=== PATIENT | male | born 1940 | race Two or more races ===

== ENCOUNTER 2016-02-22 10:44 | Inpatient (IN) | payer MEDICARE, MEDICAID ==
[~2016-02-22] VITALS: Ht 167.6 cm; Wt 69.9 kg
[~2016-02-22 10:44] MED LIST: ALLO100T; AMI200T PO; Bumetanide PO; CLOP75TA28 PO; DOXY-216 PO; FAM20T PO; GABA-494; GLIP-115; INSLANTI SC; LEV50T PO; MET25T PO; METO5TAB56 PO; POTA8TAB2 PO; PRAV20TA3 PO; SACC250C PO; SPIR25TA88 PO; TAM04C PO; WARF5TAB PO; [UNRECOGNIZED DRUG - CODE]
[2016-02-22] MEDS ORDERED: ACETAMINOPHEN 325 MG TAB PO ONE (12:00)
[2016-02-22] MEDS ORDERED: LEVOFLOXACIN 500MG 100 ML IV ONE (12:00)
[2016-02-22 12:10] LABS: Basophils # (auto) 0 uL; Basophils % (auto) 0.4 % (0.0-2.0); DEFINITIVE VIEW TRANSMISSION; Eosinophils # (auto) 0 uL; Eosinophils % (auto) 0.3 % (0.0-7.0); Hematocrit 36.2 % (41.0-53.0); Hemoglobin 11.1 g/dL (13.5-17.5); Lymphocytes # (auto) 0.5 uL; Lymphocytes % (auto) 7.2 % (10.0-50.0); Mean Corpuscular Hgb Conc. 30.6 g/dL (32.0-36.0); Mean Corpuscular Volume 81.5 fL (80.0-100.0); Mean Platelet Volume 9.8 fL (7.4-10.4); Monocytes # (auto) 0.4 uL; Monocytes % (auto) 5.7 % (0.0-12.0); Neutrophils # (auto) 5.5 uL; Neutrophils % (auto) 86.4 % (37.0-80.0); Platelet Count (auto) 133 10^3/uL (140-450); SUSPECT VIEW TRANSMISSION; White Blood Cell 6.4 10^3/uL (4.4-10.8)
[2016-02-22] MEDS ORDERED: SODIUM CHLORIDE 0.9% 1,000 ML IV ONE (12:15)
[2016-02-22 12:18] LABS: Red Cell Distribution Width 27.2 % (11.6-16.0)
[2016-02-22 12:22] LABS: Lactic Acid 2.2 mmol/L (0.4-2.0)
[2016-02-22 12:29] LABS: Bilirubin, Total 1.1 mg/dL (0.2-1.0); Calcium 9.1 mg/dL (8.5-10.1); Magnesium 3.1 mg/dL (1.6-2.6); Total Protein 8.4 g/dL (6.4-8.2)
[2016-02-22 12:39] LABS: REFLEX LACTIC ACID YES OR NO YES
[2016-02-22 12:47] LABS: BUN/Creatinine Ratio 36.4
[2016-02-22 12:57] LABS: Partial Thromboplastin Time 33.2 sec (22.64-33.71)
[2016-02-22 12:59] LABS: Anisocytosis Slight; Platelet Estimate Decreased
[2016-02-22 13:00] LABS: Hypochromia Slight
[2016-02-22 13:11] LABS: INR 2.08 (0.9-1.15); Prothrombin Time 21.4 sec (9.37-12.3)
[2016-02-22] MEDS ORDERED: AZITHROMYCIN 500MG/D5W 250ML 250 ML IV ONE (15:45)
[2016-02-22] MEDS ORDERED: cefTRIAXone 1GM/50ML D5W 50 ML IV ONE (15:45)
[2016-02-22] MEDS ORDERED: POTASSIUM CHLORIDE 8 MEQ TAB PO ONE (16:00)
[2016-02-22] MEDS ORDERED: DOCUSATE SOD 100 MG CAP PO PRN (16:00)
[2016-02-22] MEDS ORDERED: ONDANSETRON HCL 4 MG/2 ML VIAL IV PRN (16:00)
[2016-02-22] MEDS ORDERED: ACETAMINOPHEN 325 MG TAB PO PRN (16:00)
[2016-02-22] MEDS ORDERED: TEMAZEPAM 15 MG CAP PO PRN (16:00)
[2016-02-22] MEDS ORDERED: NITROGLYCERIN 0.4 MG SL TAB SL PRN (16:00)
[2016-02-22] MEDS ORDERED: DEXTROSE (50%) 50ML SYRG IV PRN (16:00)
[2016-02-22] MEDS ORDERED: MORPHINE SULF INJ 2 MG/ML SYRINGE 1ML IV PRN ×2 (16:00)
[2016-02-22] MEDS: SODIUM CHLORIDE 0.9% 1,000 ML IV SCH (16:17)
[2016-02-22] MEDS ORDERED: ENOXAPARIN SOD 30 MG/0.3 ML SYRINGE SC SCH (16:30)
[2016-02-22] MEDS: FAMOTIDINE 20 MG TAB PO SCH (16:40)
[2016-02-22] MEDS: MULTIPLE VITAMIN TAB PO SCH (16:40)
[2016-02-22] MEDS: ACCU-CHEK COMFORT CURVE STRIP VI SCH ×2 (17:00→22:00)
[2016-02-22] MEDS: InsuLIN REG 1unit/0.01ml Soln (100units/ml) SC SCH (17:00)
[2016-02-22 17:02] LABS: Urine Bilirubin Negative (Negative); Urine Glucose Normal (Normal); Urine Hyaline Cast MANY /lpf (0 - 2); Urine Ketone Negative (Negative); Urine Nitrite Negative (Negative); Urine RBC 1701 /hpf (0 - 3); Urine Squamous Epithelial Cell FEW /hpf (<5); Urine Urobilinogen Normal (Negative)
[2016-02-22 17:05] LABS: Urine Blood 3+ /uL (Negative); Urine Color Brown (Yellow)
[2016-02-22] MEDS ORDERED: TAMSULOSIN HYDROCHLORIDE 0.4 MG CAP PO SCH (18:00)
[2016-02-22] MEDS ORDERED: SPIRONOLACTONE 25 MG TAB PO ONE (18:15)
[2016-02-22] MEDS ORDERED: CLOPIDOGREL BISULFATE 75 MG TAB PO ONE (18:15)
[2016-02-22] MEDS ORDERED: ALLOPURINOL 100 MG TAB PO ONE (18:15)
[2016-02-22] MEDS ORDERED: AMIODARONE HCL 200 MG TAB PO ONE (18:15)
[2016-02-22] MEDS: BUMETANIDE 1 MG TAB PO SCH (18:18)
[2016-02-22 18:38] VITALS: BP 108/49
[2016-02-22] MEDS ORDERED: WARFARIN SODIUM 2.5 MG TAB PO ONE (20:00)
[2016-02-22] MEDS: guaiFENesin-DEXTROMETHORPHAN 5ML SYR PO PRN (20:44)
[2016-02-22] MEDS ORDERED: PRAVASTATIN SODIUM 20 MG TAB PO SCH (22:00)
[2016-02-22] MEDS: METOPROLOL TARTRATE 25 MG TAB PO SCH (22:00)
[2016-02-22] MEDS ORDERED: InsuLIN REG 1unit/0.01ml Soln (100units/ml) SC SCH (22:00)
[2016-02-22] MEDS: HYDROcodone-ACET 5/325MG TAB PO PRN (22:13)
[2016-02-22] MEDS: GABAPENTIN 100 MG CAP PO SCH (22:13)
[2016-02-23 01:00] LABS: Hematocrit 27.3 % (41.0-53.0); Hemoglobin 8.7 g/dL (13.5-17.5)
[2016-02-23] MEDS: HYDROcodone-ACET 5/325MG TAB PO PRN (03:08)
[2016-02-23 05:00] VITALS: BP 118/55
[2016-02-23 05:21] LABS: Basophils # (auto) 0 uL; Basophils % (auto) 0.3 % (0.0-2.0); DEFINITIVE VIEW TRANSMISSION; Eosinophils # (auto) 0 uL; Eosinophils % (auto) 0.2 % (0.0-7.0); Hematocrit 28.1 % (41.0-53.0); Hemoglobin 8.9 g/dL (13.5-17.5); Lymphocytes # (auto) 0.5 uL; Lymphocytes % (auto) 10.5 % (10.0-50.0); Mean Corpuscular Hemoglobin 25.6 pg (28.0-32.0); Mean Corpuscular Hgb Conc. 31.8 g/dL (32.0-36.0); Mean Corpuscular Volume 80.7 fL (80.0-100.0); Mean Platelet Volume 9.8 fL (7.4-10.4); Monocytes # (auto) 0.3 uL; Monocytes % (auto) 6.5 % (0.0-12.0); Neutrophils # (auto) 4.3 uL; Neutrophils % (auto) 82.5 % (37.0-80.0); Platelet Count (auto) 98 10^3/uL (140-450); SUSPECT VIEW TRANSMISSION; White Blood Cell 5.2 10^3/uL (4.4-10.8)
[2016-02-23 05:35] LABS: Albumin 3.2 g/dL (3.4-5.0); Bilirubin, Total 0.8 mg/dL (0.2-1.0); Calcium 8.5 mg/dL (8.5-10.1); Total Protein 6.5 g/dL (6.4-8.2)
[2016-02-23 05:42] LABS: Red Cell Distribution Width 26.5 % (11.6-16.0)
[2016-02-23 05:50] LABS: INR 2.81 (0.9-1.15); Prothrombin Time 28.9 sec (9.37-12.3)
[2016-02-23] MEDS: BUMETANIDE 1 MG TAB PO SCH (06:33)
[2016-02-23 06:51] LABS: BUN/Creatinine Ratio 37.7
[2016-02-23 06:52] LABS: Anisocytosis Moderate; Hypochromia Slight; Platelet Estimate Decreased
[2016-02-23 06:53] LABS: Microcytosis Slight; Ovalocytes FEW
[2016-02-23 06:54] LABS: Tear Drop Cells FEW
[2016-02-23] MEDS ORDERED: LEVOTHYROXINE SODIUM 25 MCG TAB PO SCH (07:00)
[2016-02-23] MEDS ORDERED: POTASSIUM CHL 20 Meq TABLET PO ONE (07:00)
[2016-02-23] MEDS ORDERED: glipiZIDE 5 MG TAB PO SCH (07:00)
[2016-02-23] MEDS: ACCU-CHEK COMFORT CURVE STRIP VI SCH ×2 (07:03→11:30)
[2016-02-23] MEDS: InsuLIN REG 1unit/0.01ml Soln (100units/ml) SC SCH ×2 (07:04→11:30)
[2016-02-23 07:31] LABS: Hematocrit 27.2 % (41.0-53.0); Hemoglobin 8.5 g/dL (13.5-17.5)
[2016-02-23] MEDS ORDERED: INSULIN DETEMIR(LEVEMIR) 1unit/0.01ml Soln (100units/ml) SC SCH (08:00)
[2016-02-23] MEDS: SODIUM CHLORIDE 0.9% 1,000 ML IV SCH (08:28)
[2016-02-23 09:00] VITALS: BP 104/47
[2016-02-23] MEDS ORDERED: cefTRIAXone 1GM/50ML D5W 50 ML IV SCH (09:00)
[2016-02-23 09:55] LABS: Basophils # (auto) 0 uL; Basophils % (auto) 0.4 % (0.0-2.0); DEFINITIVE VIEW TRANSMISSION; Eosinophils # (auto) 0 uL; Eosinophils % (auto) 0.3 % (0.0-7.0); Hematocrit 30.4 % (41.0-53.0); Hemoglobin 9.3 g/dL (13.5-17.5); Lymphocytes # (auto) 0.7 uL; Lymphocytes % (auto) 9.7 % (10.0-50.0); Mean Corpuscular Hgb Conc. 30.7 g/dL (32.0-36.0); Mean Corpuscular Volume 81.5 fL (80.0-100.0); Mean Platelet Volume 9.7 fL (7.4-10.4); Monocytes # (auto) 0.5 uL; Monocytes % (auto) 6.9 % (0.0-12.0); Neutrophils # (auto) 6.2 uL; Neutrophils % (auto) 82.7 % (37.0-80.0); Platelet Count (auto) 110 10^3/uL (140-450); SUSPECT VIEW TRANSMISSION; White Blood Cell 7.4 10^3/uL (4.4-10.8)
[2016-02-23] MEDS ORDERED: POTASSIUM CHL 10 Meq TABLET PO SCH (10:00)
[2016-02-23] MEDS: METOPROLOL TARTRATE 25 MG TAB PO SCH (10:00)
[2016-02-23] MEDS ORDERED: CLOPIDOGREL BISULFATE 75 MG TAB PO SCH (10:00)
[2016-02-23] MEDS ORDERED: AMIODARONE HCL 200 MG TAB PO SCH (10:00)
[2016-02-23] MEDS ORDERED: AZITHROMYCIN 500MG/D5W 250ML 250 ML IV SCH (10:00)
[2016-02-23] MEDS ORDERED: METOLAZONE 5 MG TAB PO SCH (10:00)
[2016-02-23] MEDS ORDERED: SPIRONOLACTONE 25 MG TAB PO SCH (10:00)
[2016-02-23] MEDS ORDERED: ALLOPURINOL 100 MG TAB PO SCH (10:00)
[2016-02-23 10:12] LABS: Red Cell Distribution Width 26.8 % (11.6-16.0)
[2016-02-23 10:46] LABS: Anisocytosis Slight; Macrocytosis Slight; Ovalocytes FEW; Platelet Estimate Decreased; Tear Drop Cells FEW
[2016-02-23] MEDS ORDERED: POTASSIUM CHL 10% (20 MEQ/15ML) ORAL SOLN PO ONE (11:45)
[2016-02-23] MEDS: guaiFENesin-DEXTROMETHORPHAN 5ML SYR PO PRN (11:56)
[2016-02-23] MEDS: FAMOTIDINE 20 MG TAB PO SCH (12:14)
[2016-02-23] MEDS: GABAPENTIN 100 MG CAP PO SCH (12:14)
[2016-02-23] MEDS: MULTIPLE VITAMIN TAB PO SCH (12:14)
[2016-02-23 13:00] VITALS: BP 94/39
[2016-02-23] MEDS ORDERED: NOREPINEPHRINE BITARTRATE 250 ML IV ONE (15:03)
[2016-02-23] MEDS ORDERED: EPINEPHrine HCL INJECTION 8 MG in D5W 5% 250 ML IV SCH (15:45)
[2016-02-23] MEDS ORDERED: NOREPINEPHRINE BITARTRATE 250 ML IV SCH (16:15)
[2016-02-23] MEDS ORDERED: EPINEPHrine HCL 1 MG/10 ML SYRG IV ONE (17:17)
[2016-02-23] MEDS ORDERED: SODIUM BICARBONATE 8.4% INJ 50ML SYRINGE IV ONE (17:17)
[2016-02-23] MEDS ORDERED: ATROPINE SULF 0.5 MG/5ML SYR IV ONE (17:17)
[2016-02-24 07:55] LABS: Potassium 2.7 mmol/L (3.5-5.1)
== END 2016-02-23 18:26 | disposition expired | DRG 871 ==
LOC: ER 10:50 → TELE 10:51 → TELE-EAST 17:23
PROVIDERS: ADMIT Internal Medicine; ATTEND Internal Medicine
PROC: 5A19054 Respiratory Ventilation, Single, Nonmechanical (ICD-10-PCS; 2016-02-22)
PROC: 5A12012 Performance of Cardiac Output, Single, Manual (ICD-10-PCS; principal; 2016-02-23)
PROC: 0BH17EZ Insertion of Endotracheal Airway into Trachea, Via Natural or Artificial Opening (ICD-10-PCS; 2016-02-23)
DX: A41.9 Sepsis, unspecified organism (principal); G92 Toxic encephalopathy; N17.0 Acute kidney failure with tubular necrosis; J18.9 Pneumonia, unspecified organism; I50.42 Chronic combined systolic (congestive) and diastolic (congestive) heart failure; I13.2 Hypertensive heart and chronic kidney disease with heart failure and with stage 5 chronic kidney disease, or end stage renal disease; N18.5 Chronic kidney disease, stage 5; J44.0 Chronic obstructive pulmonary disease with (acute) lower respiratory infection; D63.8 Anemia in other chronic diseases classified elsewhere; E11.22 Type 2 diabetes mellitus with diabetic chronic kidney disease; E78.5 Hyperlipidemia, unspecified; I25.10 Atherosclerotic heart disease of native coronary artery without angina pectoris; B35.9 Dermatophytosis, unspecified; D69.6 Thrombocytopenia, unspecified; E87.6 Hypokalemia; I46.9 Cardiac arrest, cause unspecified; K75.9 Inflammatory liver disease, unspecified; M10.9 Gout, unspecified; N13.9 Obstructive and reflux uropathy, unspecified; Z82.3 Family history of stroke; Z82.49 Family history of ischemic heart disease and other diseases of the circulatory system; I25.2 Old myocardial infarction; Z83.3 Family history of diabetes mellitus; Z95.1 Presence of aortocoronary bypass graft
CPT/HCPCS: 36415; 36600; 51702; 71020; 80053; 80162; 81001; 82805; 82962; 83036; 83605; 83735; 84484; 85014; 85018; 85025; 85610; 85730; 87040; 87081; 93005; 96365; 96367; 96368; 96372; 99291; J0171; J0461; J0696; J1815; J1956; J2405; J3490; J7060